=== PATIENT | male | born 1975 | race Caucasian/White ===

== ENCOUNTER 2022-04-19 09:07 | Day surgery (SDC) | payer BC ==
[~2022-04-19 09:07] MED LIST: Lactated Ringers 1,000 ML IV SCH
[2022-04-19] MEDS ORDERED: Propofol 200 MG/20 ML SDV ONE ×3 (09:22→11:20)
[2022-04-19] MEDS ORDERED: Lidocaine 2% 5 ML SDV ONE (11:05)
[2022-04-19] MEDS ORDERED: Lactated Ringers 1,000 ML IV SCH (12:00)
== END 2022-04-19 12:10 | disposition home or self-care (01) ==
LOC: MW.SDS 09:07
PROVIDERS: ATTEND Surgery
DX: Z12.11 Encounter for screening for malignant neoplasm of colon (principal); K62.1 Rectal polyp; F17.210 Nicotine dependence, cigarettes, uncomplicated; E66.9 Obesity, unspecified; Z68.34 Body mass index [BMI] 34.0-34.9, adult
CPT/HCPCS: 45380; J2704; J7120